=== PATIENT | female | born 1970 | race Two or more races ===

== ENCOUNTER 2019-09-01 14:16 | Outpatient (CLI) | payer OTHER ==
[~2019-09-01 14:16] MED LIST: BENTYL10 MG/ML IM; PROTONIX20 MG PO; QUESTRAN LIGH4 G/PKT PO
== END 2019-09-01 14:43 | disposition home or self-care (01) ==
LOC: MAMO-SONO 14:16
DX: Z12.31 Encounter for screening mammogram for malignant neoplasm of breast (principal); Z87.898 Personal history of other specified conditions; N64.59 Other signs and symptoms in breast; N64.89 Other specified disorders of breast; N63.10 Unspecified lump in the right breast, unspecified quadrant; N63.20 Unspecified lump in the left breast, unspecified quadrant; N94.0 Mittelschmerz; R10.2 Pelvic and perineal pain; N94.89 Other specified conditions associated with female genital organs and menstrual cycle

== ENCOUNTER 2019-09-08 15:41 | Outpatient (CLI) | payer OTHER | END 2019-09-08 15:53 | disposition home or self-care (01) | LOC: RAD 15:41 | DX: Z01.811 Encounter for preprocedural respiratory examination (principal) ==

== ENCOUNTER 2024-11-17 13:19 | Outpatient (CLI) | payer OTHER | END 2024-11-17 13:25 | disposition home or self-care (01) | LOC: MRI 13:19 | PROVIDERS: ATTEND Internal Medicine Rheumatology | DX: M25.562 Pain in left knee (principal); M25.462 Effusion, left knee; M25.50 Pain in unspecified joint; I82.499 Acute embolism and thrombosis of other specified deep vein of unspecified lower extremity | CPT/HCPCS: 73721 ==